=== PATIENT | female | born 1950 | race African-American/Black ===

== ENCOUNTER 2021-12-13 09:07 | Emergency (ER) | payer MEDICARE, OTHER | END 2021-12-13 10:10 | disposition home or self-care (01) | LOC: NAV ERS 09:07 | DX: J06.9 Acute upper respiratory infection, unspecified (principal); Z20.822 Contact with and (suspected) exposure to COVID-19; E78.2 Mixed hyperlipidemia; E03.9 Hypothyroidism, unspecified; I10 Essential (primary) hypertension; M10.9 Gout, unspecified; Z79.899 Other long term (current) drug therapy; Z79.82 Long term (current) use of aspirin | CPT/HCPCS: 87081; 87430; 99283; U0003; U0005 ==

== ENCOUNTER 2023-07-19 09:06 | Emergency (ER) | payer MEDICARE, OTHER ==
[2023-07-19] MEDS ORDERED: Acetaminophen 500 MG TAB ONE (09:52)
== END 2023-07-19 10:50 | disposition home or self-care (01) ==
LOC: NAV ERS 09:06
DX: S46.911A Strain of unspecified muscle, fascia and tendon at shoulder and upper arm level, right arm, initial encounter (principal); S93.602A Unspecified sprain of left foot, initial encounter; I10 Essential (primary) hypertension; E78.2 Mixed hyperlipidemia; E03.9 Hypothyroidism, unspecified; Z79.899 Other long term (current) drug therapy; Z79.82 Long term (current) use of aspirin; W01.0XXA Fall on same level from slipping, tripping and stumbling without subsequent striking against object, initial encounter